=== PATIENT | female | born 1985 | race Caucasian/White ===

== ENCOUNTER 2017-07-05 11:42 | Emergency (ER) | payer MEDICAID ==
[2017-07-05 11:50] VITALS: BMI 26.5
[2017-07-05 11:52] VITALS: BP 147/76; RESP 17; TEMP 98.3; O2SAT 100
--- NOTE | 2017-07-05 12:51 | ED PDOC ---
HPI: Chest Pain Time Seen by Provider: 07/05/17 11:58 Chief Complaint (Nursing): Chest Pain Chief Complaint (Provider): Chest Pain History Per: Patient History/Exam Limitations: no limitations Onset/Duration Of Symptoms: Hrs Additional Complaint(s): Isabelle Carlisle is a 31 year old female that presents to the ED with a chief complaint of left-sided chest pain described as pinching that began one hour prior to arrival in ED. Patient reports that she went to temple earlier this morning and felt fine, but upon returning home began to experience her chest pain. She denies any leg swelling or shortness of breath, and states that she has not taken any medication for her pain. No long distance travel or on any hormone tx. No nausea, cough, injury. Past Medical History Reviewed: Historical Data, Nursing Documentation, Vital Signs Vital Signs: Last Vital Signs Temp 98.3 F 07/05/17 11:51 Pulse 86 07/05/17 11:51 Resp 17 07/05/17 11:51 BP 147/76 07/05/17 11:51 Pulse Ox 100 07/05/17 12:53 - Medical History Other PMH: mental retardaiotn - Surgical History Surgical History: No Surg Hx - Family History Family History: States: Unknown Family Hx - Living Arrangements Living Arrangements: With Family - Social History Alcohol: None Drugs: Denies - Home Medications Home Medications: Ambulatory Orders Medication Instructions Recorded Tobramycin 0.3% [Tobramycin 5 Ml] 1 drop OP TID #0 bottle 07/03/14 Guaifenesin/Pseudoephedrne HCl 1 tab PO DAILY PRN #30 ter 12/24/15 [Mucinex D 600 mg-60 mg] Promethazine HCl/Codeine 5 ml PO HS #80 ml 12/24/15 [Promethazine HCl-Codeine Phosphate 10 mg/5 ml] - Allergies Allergies/Adverse Reactions: Allergies Allergy/AdvReac Type Severity Reaction Status Date / Time No Known Allergies Allergy Verified 07/05/17 12:13 Review of Systems Constitutional: Negative for: Fever, Chills Cardiovascular: Positive for: Chest Pain (left-sided, "pinching") Respiratory: Negative for: Shortness of Breath Gastrointestinal: Negative for: Nausea, Vomiting, Abdominal Pain, Diarrhea Neurological: Negative for: Headache Physical Exam - Reviewed Nursing Documentation Reviewed: Yes Vital Signs Reviewed: Yes - Physical Exam Appears: Positive for: Non-toxic, No Acute Distress Head Exam: Positive for: ATRAUMATIC, NORMOCEPHALIC Skin: Positive for: Normal Color, Warm Eye Exam: Positive for: Normal appearance, EOMI, PERRL Neck: Positive for: Normal, Painless ROM Cardiovascular/Chest: Positive for: Regular Rate, Rhythm. Negative for: Chest Non Tender (mild TTP upper chest), Murmur Respiratory: Positive for: Normal Breath Sounds. Negative for: Wheezing Gastrointestinal/Abdominal: Positive for: Normal Exam, Soft. Negative for: Tenderness Back: Positive for: Normal Inspection. Negative for: L CVA Tenderness, R CVA Tenderness Extremity: Positive for: Normal ROM. 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 Negative for: Motor/Sensory Deficits - ECG ECG: Positive for: Interpreted By Me, Viewed By Me ECG Rhythm: Positive for: Normal QRS, Normal ST Segment, Sinus Rhythm O2 Sat by Pulse Oximetry: 100 (RA) Pulse Ox Interpretation: Normal - Radiology X-Ray: Interpreted by Me, Viewed By Me X-Ray Interpretation: No Acute Disease - Progress ED Course And Treament: 1347: Stable. AAOx3. Pain free. Refusing blood work. Pt. is aaox3. Mother present and is aaox3. Has capacity to make decisions. Aware of possible or decreased functioning from chest pain and its causes. Will AMA and go to her doctor. Medical Decision Making Medical Decision Making: Impression: Chest Pain Plan: * Chest X-Ray * EKG * CMP * CBC * Troponin I * D-Dimer * Urine * Ibuprofen 600 mg PO * Reevaluation Scribe Attestation: Documented by Ivon Way, acting as a scribe for Danyel Ayala MD. Provider Scribe Attestation: All medical record entries made by the Scribe were at my direction and personally dictated by me. I have reviewed the chart and agree that the record accurately reflects my personal performance of the history, physical exam, medical decision making, and the department course for this patient. I have also personally directed, reviewed, and agree with the discharge instructions and disposition. Disposition - Clinical Impression Clinical Impression: Chest pain - Patient ED Disposition Is Patient to be Admitted: No Counseled Patient/Family Regarding: Diagnosis - Disposition Disposition: Against Medical Advice Disposition Time: 13:48 Condition: STABLE Additional Instructions: Return soon as possible for further evaluation and treatment. You are going against medical advice. You can or have decreased functioning from your chest pain. Instructions: Chest Pain (ED) Forms: [employer] [facility] (Pashto)
[2017-07-05 13:48] VITALS: PULSE 82
--- NOTE | 2017-07-05 14:55 | RAD ---
HISTORY: pain COMPARISON: No prior. TECHNIQUE: Chest PA and lateral FINDINGS: LUNGS: No active pulmonary disease. PLEURA: No significant pleural effusion identified. No pneumothorax apparent. CARDIOVASCULAR: Normal. OSSEOUS STRUCTURES: No significant abnormalities. VISUALIZED UPPER ABDOMEN: Normal. OTHER FINDINGS: None. IMPRESSION: No active disease.
--- NOTE | 2017-07-06 07:43 | CARD ---
APPROVED REPORT EKG Measurement Heart [id number] <Conclusion> Normal sinus rhythm Normal ECG
== END 2017-07-05 13:55 | disposition home or self-care (01) ==
LOC: H.ER 11:42
DX: R07.89 Other chest pain (principal)

== ENCOUNTER 2018-01-07 04:51 | Emergency (ER) | payer MEDICAID ==
[2018-01-07 04:52] VITALS: BMI 26.5
[2018-01-07 05:12] VITALS: TEMP 97.6
[2018-01-07] MEDS ORDERED: Sodium Chloride 0.9% 1,000 ML IV STA (05:25)
--- NOTE | 2018-01-07 05:28 | ED PDOC ---
HPI:Nausea, Vomiting, Diarrhea Time Seen by Provider: 01/07/18 05:14 Chief Complaint (Nursing): Abdominal Pain Chief Complaint (Provider): vomiting, diarrhea History Per: Patient, Family (mother) History/Exam Limitations: no limitations Onset/Duration Of Symptoms: Hrs (11) Current Symptoms Are (Timing): Still Present Associated Symptoms: Nausea, Vomiting, Diarrhea Last Bowel Movement: Today Additional Complaint(s): 32 y/o female presents with mother for evaluation of vomiting/diarrhea x 11 hours. Mother states patient began complaining of epigastric pain around 18:30 , with diarrhea soon after. Mylanta was given with improvement of symptoms, but patient states she woke up through the night with more diarrhea episodes, and one vomiting episode at 4:00, which prompted ED visit. Denies fever, cough , chest pain, shortness of breath, palpitations, urinary symptoms, recent travel , sick contacts. Abnormal Vaginal Bleeding: No Past Medical History Reviewed: Historical Data, Nursing Documentation, Vital Signs Vital Signs: Last Vital Signs Temp 97.6 F 01/07/18 05:08 Pulse 101 H 01/07/18 05:08 Resp 19 01/07/18 05:08 BP 137/75 01/07/18 05:08 Pulse Ox 99 01/07/18 05:08 - Medical History PMH: No Chronic Diseases - Surgical History Surgical History: No Surg Hx - Family History Family History: States: Unknown Family Hx - Living Arrangements Living Arrangements: With Family - Home Medications Home Medications: Ambulatory Orders Medication Instructions Recorded Tobramycin 0.3% [Tobramycin 5 Ml] 1 drop OP TID #0 bottle 07/03/14 Guaifenesin/Pseudoephedrne HCl 1 tab PO DAILY PRN #30 ter 12/24/15 [Mucinex D 600 mg-60 mg] Promethazine HCl/Codeine 5 ml PO HS #80 ml 12/24/15 [Promethazine HCl-Codeine Phosphate 10 mg/5 ml] - Allergies Allergies/Adverse Reactions: Allergies Allergy/AdvReac Type Severity Reaction Status Date / Time No Known Allergies Allergy Verified 01/07/18 05:08 Review of Systems ROS Statement: Except As Marked, All Systems Reviewed And Found Negative Gastrointestinal: Positive for: Nausea, Vomiting, Abdominal Pain, Diarrhea Physical Exam - Reviewed Nursing Documentation Reviewed: Yes Vital Signs Reviewed: Yes - Physical Exam Appears: Positive for: Well, Non-toxic, No Acute Distress Head Exam: Positive for: ATRAUMATIC, NORMAL INSPECTION, NORMOCEPHALIC Skin: Positive for: Normal Color Eye Exam: Positive for: Normal appearance ENT: Positive for: Normal ENT Inspection Cardiovascular/Chest: Positive for: Regular Rate, Rhythm Respiratory: Positive for: Normal Breath Sounds Gastrointestinal/Abdominal: Positive for: Bowel Sounds, Soft, Tenderness ( epigastric) Back: Positive for: Normal Inspection Extremity: Positive for: Normal ROM Neurologic/Psych: Positive for: Alert, Oriented - ECG O2 Sat by Pulse Oximetry: 99 - Progress ED Course And Treament: labs, urine, IV fluids, IV pepcid, zofran ODT Disposition - Clinical Impression Clinical Impression: Gastroenteritis - Disposition Referrals: Marv Ureña [Primary Care Provider] - Disposition Time: 06:00 Condition: STABLE
[2018-01-07 06:01] LABS: BASO % 0.4 % (0.0-2.0); EOS % 0.1 % (0.0-4.0); HEMOGLOBIN 15.1 g/dL (12.0-16.0); LYMPH # 0.7 K/uL (1.0-4.3); LYMPH % 8.6 % (20.0-40.0); MEAN CELL VOLUME 96.2 fl (81.0-99.0); MEAN CORPUSCULAR HEMOGLOBIN 32.4 pg (27.0-31.0); MEAN CORPUSCULAR HGB CONC 33.7 g/dL (33.0-37.0); MEAN PLATELET VOLUME 10.1 fl (7.2-11.7); MONO # 0.3 K/uL (0.0-0.8); MONO % 3.6 % (0.0-10.0); NEUT # 7.3 K/uL (1.8-7.0); NEUT % 87.3 % (50.0-75.0); PLATELET COUNT 135 K/uL (130-400); RBC 4.67 Mil/uL (3.80-5.20); RED CELL DISTRIBUTION WIDTH 13.4 % (11.5-14.5); WHITE BLOOD COUNT 8.3 K/uL (4.8-10.8)
[2018-01-07 06:17] LABS: ALB/GLOB RATIO 1.1 (1.0-2.1); ALBUMIN 4.1 g/dL (3.5-5.0); ALT/SGPT 42 U/L (9-52); AST/SGOT 30 U/L (14-36); BLOOD UREA NITROGEN 14 mg/dl (7-17); CALCIUM 9.3 mg/dL (8.4-10.2); GFR AFRICAN-AMERICAN > 60; GFR NON-AFRICAN AMERICAN > 60; LIPASE 204 U/L (23-300)
[2018-01-07 06:25] LABS: SQUAMOUS EPITHIAL 2 /hpf (0-5); URINE BACTERIA RARE (<OCC); URINE BILIRUBIN NEGATIVE (NEGATIVE); URINE BLOOD NEGATIVE (NEGATIVE); URINE CLARITY SLIGHTY-CLOUDY (Clear); URINE COLOR YELLOW (YELLOW); URINE GLUCOSE (UA) NEG (Normal); URINE HYALINE CAST 0-2 /hpf (0-2); URINE LEUKOCYTE ESTERASE NEG Leu/uL (Negative); URINE PROTEIN 30 mg/dL (NEGATIVE); URINE UROBILINOGEN 0.2-1.0 mg/dL (0.2-1.0)
[2018-01-07 08:04] VITALS: BP 124/71; PULSE 74; RESP 18; O2SAT 100
[2018-01-07 09:42] LABS: LYMPHOCYTE 8 % (20-50); MONOCYTE 2 % (0-10); NEUTROPHIL 90 % (42-75); PLATELET ESTIMATE NORMAL (NORMAL); TOTAL CELLS COUNTED 100
== END 2018-01-07 08:03 | disposition home or self-care (01) ==
LOC: H.ER 04:51
DX: K52.9 Noninfective gastroenteritis and colitis, unspecified (principal)
CPT/HCPCS: 80053; 81003; 83690; 85025; 87086; 96361; 96374; 99283; J7040

== ENCOUNTER 2018-08-02 06:12 | Emergency (ER) | payer MEDICAID ==
[2018-08-02 06:13] VITALS: BMI 26.5
[2018-08-02 06:59] VITALS: RESP 16; TEMP 97.5
--- NOTE | 2018-08-02 07:19 | ED PDOC ---
HPI: Influenza Time Seen by Provider: 08/02/18 07:02 Chief Complaint: Cough, Cold, Congestion Chief Complaint (Provider): Cough, Cold, Congestion History Per: Patient Exam Limitations: no limitations Onset/Duration Of Symptoms: Days (x1 day ) Symptoms include: sore throat, cough (productive ). denies: headache, vomiting, diarrhea Hx Influenza Vaccination: Yes (2018) Additional complaint(s):: Isabelle Carlisle is a 32 year old female with no past medical history, who presents to the emergency department with upper respiratory distress, onset x1 day ago. Patient states she has had a productive cough, sore throat and been having malaise since yesterday. She denies having any shortness of breath, headache, abdominal pain, nausea, vomiting or diarrhea. Patient states that she did receive her flu shot this year. PMD: Marv Ureña Past Medical History Reviewed: Historical Data, Nursing Documentation, Vital Signs Vital Signs: Last Vital Signs Temp 97.5 F L 08/02/18 06:54 Pulse 95 H 08/02/18 06:54 Resp 16 08/02/18 06:54 BP 130/78 08/02/18 06:54 Pulse Ox 95 08/02/18 06:54 - Medical History PMH: No Chronic Diseases - Surgical History Surgical History: No Surg Hx - Family History Family History: States: Unknown Family Hx - Immunization History Hx Influenza Vaccination: Yes (2018) - Home Medications Home Medications: Ambulatory Orders Medication Instructions Recorded Tobramycin 0.3% [Tobramycin 5 Ml] 1 drop OP TID #0 bottle 07/03/14 Guaifenesin/Pseudoephedrne HCl 1 tab PO DAILY PRN #30 ter 12/24/15 [Mucinex D 600 mg-60 mg] Promethazine HCl/Codeine 5 ml PO HS #80 ml 12/24/15 [Promethazine HCl-Codeine Phosphate 10 mg/5 ml] Dicyclomine [Bentyl] 20 mg PO Q12 PRN #20 tab 01/07/18 Ondansetron ODT [Zofran ODT] 4 mg PO Q6 PRN #16 odt 01/07/18 Azithromycin [Zithromax] 250 mg PO DAILY #6 tab 08/02/18 guaiFENesin [guaifENESIN] 100 mg PO Q6 PRN #100 ml 08/02/18 - Allergies Allergies/Adverse Reactions: Allergies Allergy/AdvReac Type Severity Reaction Status Date / Time No Known Allergies Allergy Verified 01/07/18 05:08 Review of Systems ROS Statement: Except As Marked, All Systems Reviewed And Found Negative Respiratory: Positive for: Cough. Negative for: Shortness of Breath Gastrointestinal: Negative for: Nausea, Vomiting, Abdominal Pain, Diarrhea Neurological: Negative for: Headache Physical Exam - Reviewed Nursing Documentation Reviewed: Yes Vital Signs Reviewed: Yes - Physical Exam Appears: Positive for: Non-toxic, No Acute Distress Head Exam: Positive for: ATRAUMATIC, NORMOCEPHALIC Skin: Positive for: Normal Color, Warm, Dry Eye Exam: Positive for: Normal appearance, EOMI, PERRL ENT: Positive for: Pharyngeal Erythema, Tonsillar Exudate (trace amounts) Neck: Positive for: Normal, Painless ROM, Supple Cardiovascular/Chest: Positive for: Regular Rate, Rhythm. Negative for: Murmur Respiratory: Positive for: Normal Breath Sounds. Negative for: Respiratory Distress Gastrointestinal/Abdominal: Positive for: Normal Exam, Soft. Negative for: Tenderness Back: Positive for: Normal Inspection. Negative for: L CVA Tenderness, R CVA Tenderness, Vertebral Tenderness Extremity: Positive for: Normal ROM. Negative for: Pedal Edema, Deformity Neurologic/Psych: Positive for: Alert, Oriented (x3) Medical Decision Making Medical Decision Making: Time: 07:02 Initial Impression: Upper Respiratory Infection Initial Plan: Provider instructed patient to follow up with PMD, take antibiotics and receive supportive care. Scribe Attestation: Documented by Gustavo Cordova, acting as a scribe for Davidson Luna III, DO. Provider Scribe Attestation: All medical record entries made by the Scribe were at my direction and personally dictated by me. I have reviewed the chart and agree that the record accurately reflects my personal performance of the history, physical exam, medical decision making, and the department course for this patient. I have also personally directed, reviewed, and agree with the discharge instructions and disposition. - ECG O2 Sat by Pulse Oximetry: 95 (RA) Pulse Ox Interpretation: Normal Disposition - Clinical Impression Clinical Impression: Upper respiratory infection - Disposition Referrals: Marv Ureña [Family Provider] - Disposition Time: 07:14 Condition: STABLE Additional Instructions: ISABELLE CARLISLE, thank you for letting us take care of you today. Your provider was Davidson Luna III, DO and you were treated for THROAT PAIN,CHEST CONGESTION. The emergency medical care you received today was directed at your acute symptoms. If you were prescribed any medication, please fill it and take as directed. It may take several days for your symptoms to resolve. Return to the Emergency Department if your symptoms worsen, do not improve, or if you have any other problems. Please contact your doctor or call one of the physicians/clinics you have been referred to that are listed on the Patient Visit Information form that is included in your discharge packet. Bring any paperwork you were given at discharge with you along with any medications you are taking to your follow up visit. Our treatment cannot replace ongoing medical care by a primary care provider outside of the emergency department. Thank you for allowing the [facility] team to be part of your care today. Prescriptions: Azithromycin [Zithromax] 250 mg PO DAILY #6 tab guaiFENesin [guaifENESIN] 100 mg PO Q6 PRN #100 ml PRN Reason: Cough Instructions: Bacterial Upper Respiratory Infection, Adult Forms: [employer] (Belarusian), [facility] ED School/Work Excuse
[2018-08-02 07:32] VITALS: BP 132/84; PULSE 90
[2018-08-02 07:36] VITALS: O2SAT 95
== END 2018-08-02 07:33 | disposition home or self-care (01) ==
LOC: H.ER 06:12
DX: J06.9 Acute upper respiratory infection, unspecified (principal)

== ENCOUNTER 2018-08-28 09:23 | Emergency (ER) | payer MEDICAID ==
[2018-08-28 09:33] VITALS: BMI 25.9
[2018-08-28 09:34] VITALS: TEMP 98
[2018-08-28 09:59] VITALS: O2SAT 98
--- NOTE | 2018-08-28 10:25 | ED PDOC ---
HPI: CCC, URI, Sore Throat Time Seen by Provider: 08/28/18 09:35 Chief Complaint (Nursing): ENT Problem History Per: Patient, Family (mother) Additional Complaint(s): Pt. presents with mother and states yesterday she was eating bread when she suddenly felt pain in her L jaw. Pain is non-radiating and is worse with opening and closing of jaw. Denies numbness, tingling, chest pain, trauma. Past Medical History Reviewed: Historical Data, Nursing Documentation, Vital Signs Vital Signs: Last Vital Signs Temp 98 F 08/28/18 09:33 Pulse 69 08/28/18 09:33 Resp 17 08/28/18 09:33 BP 131/78 08/28/18 09:33 Pulse Ox 98 08/28/18 09:57 - Family History Family History: States: Unknown Family Hx - Immunization History Hx Influenza Vaccination: Yes (2017) - Home Medications Home Medications: Ambulatory Orders Medication Instructions Recorded Tobramycin 0.3% [Tobramycin 5 Ml] 1 drop OP TID #0 bottle 07/03/14 Guaifenesin/Pseudoephedrne HCl 1 tab PO DAILY PRN #30 ter 12/24/15 [Mucinex D 600 mg-60 mg] Promethazine HCl/Codeine 5 ml PO HS #80 ml 12/24/15 [Promethazine HCl-Codeine Phosphate 10 mg/5 ml] Dicyclomine [Bentyl] 20 mg PO Q12 PRN #20 tab 01/07/18 Ondansetron ODT [Zofran ODT] 4 mg PO Q6 PRN #16 odt 01/07/18 Azithromycin [Zithromax] 250 mg PO DAILY #6 tab 08/02/18 guaiFENesin [guaifENESIN] 100 mg PO Q6 PRN #100 ml 08/02/18 Naproxen [Naprosyn] 500 mg PO BID PRN #10 tab 08/28/18 - Allergies Allergies/Adverse Reactions: Allergies Allergy/AdvReac Type Severity Reaction Status Date / Time No Known Allergies Allergy Verified 01/07/18 05:08 Review of Systems ROS Statement: Except As Marked, All Systems Reviewed And Found Negative Physical Exam - Physical Exam Appears: Positive for: Well, Non-toxic, No Acute Distress Skin: Positive for: Normal Color, Warm. Negative for: Rash Eye Exam: Positive for: Normal appearance ENT: Positive for: Normal ENT Inspection, TM Is/Are (non-erythematous, non- bulging b/l), Other (ear canals clear b/l; no facial swelling; no gingival swelling). Negative for: Pharyngeal Erythema, Tonsillar Exudate, Tonsillar Swelling Neck: Positive for: Normal, Painless ROM Neurologic/Psych: Positive for: Alert, Oriented (x3). Negative for: Aphasia, Facial Droop - ECG O2 Sat by Pulse Oximetry: 98 - Progress ED Course And Treament: Advised to f/u with dentist for further evaluation but is to return to ED immediately if symptoms worsen. Disposition - Clinical Impression Clinical Impression: TMJ arthralgia - Patient ED Disposition Is Patient to be Admitted: No - Disposition Referrals: [facility] [Outside] Disposition: Routine/Home Disposition Time: 10:15 Condition: STABLE Additional Instructions: JM SELLERS, thank you for letting us take care of you today. Your provider was Drake Marrufo MD and you were treated for SKIN IRRITATION. The emergency medical care you received today was directed at your acute symptoms. If you were prescribed any medication, please fill it and take as directed. It may take several days for your symptoms to resolve. Return to the Emergency Department if your symptoms worsen, do not improve, or if you have any other problems. Please contact your doctor or call one of the physicians/clinics you have been referred to that are listed on the Patient Visit Information form that is included in your discharge packet. Bring any paperwork you were given at discharge with you along with any medications you are taking to your follow up visit. Our treatment cannot replace ongoing medical care by a primary care provider outside of the emergency department. Thank you for allowing the [facility] team to be part of your care today. If you had an X-Ray or CT scan: A Radiologist will review the ED reading if any change in treatment is needed we will contact you. If you had a blood, urine, or wound culture: It will take several days for the results, if any change in treatment is needed we will contact you. If you had an STI test: It will take 48 hours for the results. Please call after 1 week if you have not heard back. Prescriptions: Naproxen [Naprosyn] 500 mg PO BID PRN #10 tab PRN Reason: Pain Instructions: Temporomandibular Joint (TMJ) Disorders (DC) Forms: [facility] [facility] (Kyrgyz) Print Language: YAKUT
[2018-08-28 10:29] VITALS: PULSE 78; RESP 19
[2018-08-28 10:31] VITALS: BP 130/78
== END 2018-08-28 10:30 | disposition home or self-care (01) ==
LOC: H.ER 09:23
DX: M26.609 Unspecified temporomandibular joint disorder, unspecified side (principal)